=== PATIENT | female | born 1945 | race Caucasian/White ===

== ENCOUNTER 2024-03-14 10:19 | Outpatient (CLI) | payer MEDICARE, BC, SELFPAY | END 2024-03-14 10:20 | disposition home or self-care (01) | LOC: NFLDREF 03-22 00:22 | PROVIDERS: PCP Physician Assistant Medical; Referring Provider Physician Assistant Medical; Visit Provider Family Medicine | DX: R39.9 Unspecified symptoms and signs involving the genitourinary system (principal); N39.0 Urinary tract infection, site not specified | CPT/HCPCS: 87086 ==